=== PATIENT | male | born 1980 | race Caucasian/White ===

== ENCOUNTER 2016-08-25 07:57 | Emergency (ER) | payer BC ==
[~2016-08-25] VITALS: Ht 188 cm; Wt 83.9 kg
[2016-08-25 08:04] VITALS: BP 122/75
[2016-08-25 08:31] LABS: APPEARANCE,URINE SL CLOUDY (CLEAR); BILIRUBIN,URINE NEGATIVE (NEGATIVE); BLOOD, URINE 2+ Ery/uL (NEGATIVE); COLOR,URINE YELLOW (YELLOW); KETONES,URINE NEGATIVE (NEGATIVE); LEUKOCYTE ESTERASE ,URINE 3+ (NEGATIVE); NITRITE, URINE NEGATIVE (NEGATIVE); PROTEIN,URINE NEGATIVE (NEGATIVE); UGLUCOSE NEGATIVE (NEGATIVE); UROBILINOGEN,URINE 0.2 EU/dL (0.2)
[2016-08-25 08:53] LABS: BACTERIA,URINE Few /HPF (None Seen)
[2016-08-25] MEDS ORDERED: CEFTRIAXONE 1 G VIAL IM ONE (09:00)
[2016-08-25] MEDS ORDERED: LIDOCAINE /MPF 1% VIAL 5 ML VIAL ONE (09:10)
[2016-08-25] MEDS ORDERED: CEFTRIAXONE 1 G VIAL ONE (09:10)
[2016-08-28 15:13] LABS: CHLAMYDIA TRACHOMATIS NAA Negative (Negative)
[2016-08-28 16:13] LABS: *NEISSERIA GONORRHOEAE NAA Positive (Negative)
== END 2016-08-25 09:22 | disposition home or self-care (01) ==
LOC: ER 07:59
DX: N39.0 Urinary tract infection, site not specified (principal)
CPT/HCPCS: 81001; 87086; 87491; 87591; 96372; 99284; A4606; J0696; J3490; Z7610; 81000-TC

== ENCOUNTER 2018-11-20 06:04 | Emergency (ER) | payer BC ==
[~2018-11-20] VITALS: Ht 188 cm; Wt 78.5 kg
--- NOTE | 2018-11-20 06:19 | NUR ---
CAROLLVirgilio FROM HOME TO ER BED 10. AAOX4. NO RESP DISTRESS NOTED. AMBULATORY. C/O DIARRHEA AND NAUSEA. PT REPORTS THAT HE ATE FASTFOOD YESTERDAY AFTERNOON STARTED TO HAVE UPSET STOMACH THEN AT 5PM HE ATE FRUITS THEN THE DIARRHEA STARTED. PT REPORTS HAVE X7 EPISODES OF WATTERY STOOL.PT ALSO REPORT NAUSEA AND VOMMITING BUT MINIMAL IN AMOUNT. PT REPORTS FEELING WEAK. MD AT BEDSIDE FOR EVAL. AWAITING FOR ORDERS
[2018-11-20] MEDS ORDERED: ONDANSETRON HCL/PF 4 MG/2 ML VIAL ONE (06:26)
[2018-11-20] MEDS ORDERED: IV NS 0.9% 1,000 ML BAG IV ONE (06:30)
[2018-11-20] MEDS ORDERED: ONDANSETRON HCL/PF 4 MG/2 ML VIAL IVP ONE (06:30)
--- NOTE | 2018-11-20 06:38 | NUR ---
IV LINE STARTED ON R AC 18G. BLOOD DRAWN AND GIVEN TO RECONCILIATION CLERK AT BEDSIDE.
[2018-11-20 06:40] LABS: BASOPHILS % (AUTO) 0.2 % (0.0-2.0); EOSINOPHILS % (AUTO) 0.2 % (0.0-6.0); HEMATOCRIT 44 % (39-51); HEMOGLOBIN 15.1 g/dL (13.5-17.5); LYMPHOCYTES # (AUTO) 0.5 /CMM (0.8-4.8); LYMPHOCYTES % (AUTO) 5.4 % (20.0-44.0); MEAN CORPUSCULAR HGB CONC 34 g/dl (31.0-36.0); MEAN CORPUSCULAR VOLUME 87 fL (80-96); MONOCYTES # (AUTO) 0.5 /CMM (0.1-1.30); MONOCYTES % (AUTO) 5.2 % (2.0-12.0); NEUTROPHILS # (AUTO) 8.1 /CMM (1.8-8.9); PLATELET COUNT (AUTO) 202 /CMM (150-450); RED BLOOD CELL COUNT(AUTO) 5.09 MIL/uL (4.5-6.0); WHITE BLOOD COUNT (AUTO) 9.1 K/uL (4.3-11.0)
[2018-11-20 06:47] LABS: CALCIUM, SERUM 9.1 mg/dL (8.5-10.1); CREATININE 1.1 mg/dL (0.6-1.3); POTASSIUM 4.2 mmol/L (3.5-5.1)
[2018-11-20 06:53] LABS: ALBUMIN 4.2 g/dL (3.4-5.0); BILIRUBIN,DIRECT 0.2 mg/dL (0.0-0.2); TOTAL PROTEIN, SERUM 7.9 g/dL (6.4-8.2)
--- NOTE | 2018-11-20 07:45 | NUR ---
PT ENDORSED TO [facility] FOR [facility]
--- NOTE | 2018-11-20 07:47 | NUR ---
PATIENT RECEIVED RESTING INSIDE ROOM. AWAKE, ALERT AND ORIENTED X 4, NO ACUTE DISTRESS. DENIES ANY PAIN OR DISCOMFORT. WILL CONTINUE TO MONITOR
--- NOTE | 2018-11-20 08:19 | NUR ---
STOOL SAMPLE COLLECTED AND BROUGHT TO LAB
--- NOTE | 2018-11-20 08:31 | NUR ---
IV removed. Catheter intact and site benign. Pressure and 4x4 applied to site. No bleeding noted.Patient discharged to home in stable condition. Written and verbal after care instructions given. Written prescription given to patient. Patient verbalizes understanding of instruction.
[2018-11-20 08:32] VITALS: BP 124/61
== END 2018-11-20 08:33 | disposition home or self-care (01) ==
LOC: ER 06:11
DX: R11.2 Nausea with vomiting, unspecified (principal); R19.7 Diarrhea, unspecified
CPT/HCPCS: 36415; 80048; 80076; 83690; 85025; 87493; 96361; 96374; 99283; J2405; J7030